=== PATIENT | female | born 1995 | race Caucasian/White ===

== ENCOUNTER 2025-01-29 10:41 | Emergency (ER) | payer OTHER, SELFPAY ==
[2025-01-29 10:45] VITALS: BP 127/75
[2025-01-29 11:12] VITALS: BP 119/77
[2025-01-29 11:32] LABS: Hematocrit 33.8 % (37.0-47.0); Hemoglobin 11.7 g/dL (12.0-16.0); Mean Corp Hgb Conc. 34.6 g/dL (33.0-37.0); Mean Corpuscular Volume 91.1 fL (81.0-99.0); Nucleated Red Blood Cells % 0 %; Platelet Count 190 10^3/uL (130-400); Red Cell Dist. Width 12.0 % (11.5-14.5)
[2025-01-29 11:37] LABS: HCG, Serum Qualitative Screen Negative
[2025-01-29] MEDS: ZOFRAN 4 MG IV (11:40)
[2025-01-29] MEDS: TORADOL 15 MG IV (11:40)
[2025-01-29] MEDS: NSS 1000 IV (11:40)
[2025-01-29 11:41] LABS: ALT (SGPT) 25 U/L (0-35); AST (SGOT) 37 U/L (14-36); Albumin 4.7 g/dl (3.5-5.0); Alkaline Phosphatase 70 U/L (38-126); Blood Urea Nitrogen 18 mg/dl (7-17); Calcium 9.5 mg/dl (8.4-10.2); Carbon Dioxide 24 mmol/L (22-30); Chloride 104 mmol/L (98-107); Glucose 86 mg/dl (70-99); Potassium 4.1 mmol/L (3.5-5.1); Sodium 134 mmol/L (135-145); Total Protein 7.7 g/dl (6.3-8.2); eGFR > 60.00
--- NOTE | 2025-01-29 11:48 | ED.GENMED ---
History of Present Illness
General
Chief Complaint: Flank Pain
Source: patient
Exam Limitations: none
Time Seen by Provider: 01/29/25 11:27
Nursing documentation reviewed up to this point in time: agreed with
History of Present Illness
History of Present Illness:
29-year-old female with no reported chronic medical issues presents to the ER for evaluation of flank pain. Patient reports onset of symptoms a few days ago�initially symptoms were mild and intermittent but overnight symptoms became more constant
and severe. Pain located in left flank and radiates towards the left lower abdomen. No clear triggering or relieving factors noted. She reports associated nausea but no vomiting. She denies any change in bowel movements. She has not noted any
dysuria, change in urinary frequency. No fever or chills. She is currently on her menstrual period but no heavier than usual. She denies having had similar symptoms in the past.
Review of Systems
Review of Systems
All Other Systems: ROS reviewed and negative except as documented in HPI and ROS
Constitutional: Denies fever
Respiratory: Denies trouble breathing
Cardiac: Denies chest pain
ABD/GI: Reports abdominal pain and nausea; Denies vomiting or diarrhea
: Reports flank pain and bleeding; Denies dysuria or frequency
Musculoskeletal: Denies neck pain or back pain
Neurological: Denies dizzy or headache
Phy Exam
Physical Exam
Physical Exam:
General: Awake, alert, oriented x3; no acute distress
Head: Normocephalic, atraumatic
Eyes: Conjunctiva normal, sclera anicteric
Throat: Airway intact, handling secretions
Neck: Trachea midline, supple without meningismus
Lungs: Clear to auscultation bilaterally, no wheezing, rales, rhonchi
Heart: Regular rate and rhythm, no murmurs, gallops, or rubs
Abd: Soft, non distended, nontender
Back: No CVA tenderness
Neuro: Grossly intact
Skin: Warm and dry, no rash in area of concern
Extremities: No edema in extremities, warm and well-perfused
Scores
Heart Failure Risk
Heart Failure Risk Score: Not Applicable
Heart Score for Chest Pain Patients
STEMI patient?: Not applicable
Withdrawal Assessment of Alcohol
Withdrawal Assessment Completed?: Not applicable
Course
Orders/Labs/Results
Orders:
Orders
01/29/25 11:21
Test Result ONCE
01/29/25 11:22
Complete Blood Count/With Diff Urgent
Comprehensive Metabolic Panel Urgent
HCG, Serum Qualitative Screen Urgent
01/29/25 11:36
CT Abd/pel Without Iv Or Oral Urgent
Comment:
Reason For Exam: left flank pain
0.9% Sodium Chloride 1000 ml [Nss] 1,000 ml IV BOLUS
Ketorolac [Toradol] 15 mg IV NOW STA
Ondansetron Injectable [Zofran] 4 mg IV NOW STA
Abnormal Lab Results
01/29/25
11:22
RBC 3.71 L 10^6/uL
(4.20-5.40)
Hgb 11.7 L g/dL
(12.0-16.0)
Hct 33.8 L %
(37.0-47.0)
MCH 31.5 H pg
(27.0-31.0)
MPV 10.5 H fL
(7.4-10.4)
Absolute Monos (auto) 0.7 H 10^3/uL
(0.1-0.6)
Monocytes % 9.6 H %
(1.7-9.3)
Sodium 134 L mmol/L
(135-145)
BUN 18 H mg/dl
(7-17)
Creatinine 0.5 L mg/dL
(0.6-1.0)
AST 37 H U/L
(14-36)
01/29/25 11:22
01/29/25 11:22
Vital Signs
Initial and Last Documented VS:
Initial Vital Signs
Temp Pulse Resp BP Pulse Ox
36.7 C 62 16 127/75 98
01/29/25 10:45 01/29/25 10:45 01/29/25 10:45 01/29/25 10:45 01/29/25 10:45
Last Documented Vital Signs
Temp Pulse Resp BP Pulse Ox
36.7 C 66 16 119/77 98
01/29/25 10:45 01/29/25 11:23 01/29/25 11:23 01/29/25 11:12 01/29/25 11:23
MDM/Problems Addressed
Differential Diagnosis Includes:
Nephrolithiasis, UTI, ovarian cyst, diverticulitis, gastritis/PUD, muscular pain, pancreatitis
MDM/Problems Addressed:
29-year-old female presents for evaluation of left flank pain rating to the left lower quadrant intermittent for the past few days but more constant and severe since last night. Vitals and exam are as above. She had lab work in triage including a
CBC which shows marginal anemia, CMP which shows no clinically significant abnormalities. Her hCG is negative. Will check urinalysis. Check CT abdomen. Will treat pain, nausea. Provide some IV fluids. Reassess after the above.
*Radiology
Radiology exam reviewed: radiology read reviewed
*Pulse Oximetry
SaO2: 98
Oxygen Mode of Delivery: Room air
Patient hypoxic: no (98%)
*Critical Care Note
Total Time (30-74mins, 75-104mins- exclusive of procedures): Not Applicable
Data Reviewed
Source: patient
ED Attending Note
-
Portions of this chart may have been created with voice recognition software.� Occasional wrong word or��sound alike� substitutions may have occurred due to the inherent limitations of voice recognition software.
Discharge Plan
Departure
Referrals:
Pratima Lerma MD [Family Provider, Internal Medicine]
Interventions
Interventions:
*Risk Screen - Suicide Last Done: 01/29/25 10:45
*General Assessment Last Done: 01/29/25 10:45
*Neglect/Abuse Screening Last Done: 01/29/25 10:45
*ED COVID-19 Vaccine History Last Done: 01/29/25 11:16
*ED Influenza Vaccine History Last Done: 01/29/25 11:16
[facility] Fall Risk Assessment Tool Last Done: 01/29/25 11:16
RS-Hfsjis-Eshjsvmthk Assessment Last Done: 01/29/25 11:16
ED-Female Genitourinary Assessment Last Done: 01/29/25 11:16
Discharge Date and Time
Print Language: DANISH
[2025-01-29 13:00] LABS: Urine Character Clear (Clear)
[2025-01-29 13:13] LABS: Urine Red Blood Cell 0-2 /HPF (0-2); Urine White Cell None Seen /HPF (0-5)
[2025-01-29 14:10] VITALS: BP 102/58
== END 2025-01-29 14:22 | disposition home or self-care (01) ==
LOC: EMR 10:41
PROVIDERS: EMERGENCY PHYSICIAN Emergency Medicine; FAMILY PHYSICIAN Internal Medicine
DX: M54.50 Low back pain, unspecified (principal); D64.9 Anemia, unspecified
CPT/HCPCS: 99284; 96374; 96375; 96361; 74176; 80053; 81003; 81015; 84703; 85025